=== PATIENT | female | born 1985 | race Two or more races ===

== ENCOUNTER 2020-07-05 18:01 | Inpatient (IN) | payer SELFPAY ==
[~2020-07-05] VITALS: Ht 152.4 cm; Wt 98.4 kg
[2020-07-05] MEDS ORDERED: ONDANSETRON HCL 4MG/2ML INJ IV STA (18:34)
[2020-07-05] MEDS ORDERED: MORPHINE SULFATE 4 MG/ML CPJ (NOT FOR IM USE) IV STA (18:34)
[2020-07-05] MEDS ORDERED: SODIUM CHLORIDE 0.9% 1,000 ML IV ONE (18:45)
[2020-07-05] MEDS ORDERED: ACETAMINOPHEN 325MG TABLET PO ONE (18:45)
[2020-07-05 19:13] LABS: CLARITY URINE CLEAR (CLEAR); COLOR URINE DARK YELLOW (YELLOW); KETONES URINE NEGATIVE (NEGATIVE); LEUKOCYTE ESTERASE URINE TRACE (NEGATIVE); NITRITE URINE NEGATIVE (NEGATIVE); OCCULT BLOOD URINE 3+ (NEGATIVE); PROTEIN URINE 1+ (NEGATIVE); SPECIFIC GRAVITY URINE 1.034 (1.005-1.030)
[2020-07-05 19:42] LABS: HEMATOCRIT. 31.1 % (36.0-48.0); HEMOGLOBIN. 10.5 g/dL (12.0-16.0); MEAN CORPUSCULAR HEMOGLOBIN 30.3 pg (28.0-32.0); MEAN CORPUSCULAR VOLUME 89.7 fL (81.0-99.0); MEAN PLATELET VOLUME 8.1 fl (7.4-10.4); PLATELET 416 x1000/uL (130-400); RED BLOOD CELL COUNT 3.47 mill/uL (4.2-5.4); RED CELL DISTRIBUTION WIDTH 14.1 % (11.6-14.6)
[2020-07-05 19:50] LABS: CHLORIDE 103 mEq/L (98-107)
[2020-07-05 19:51] LABS: HCG SCREEN NEGATIVE
[2020-07-05 20:13] LABS: PLATELET ESTIMATE INCREASED
[2020-07-05 23:09] LABS: HEPATITIS B SURFACE ANTIGEN NEGATIVE
[2020-07-05 23:39] LABS: HEPATITIS A AB IGM NEGATIVE (NEGATIVE)
[2020-07-06] MEDS ORDERED: IOHEXOL-300 100 ML BOTTLE ONE (01:01)
[2020-07-06] MEDS ORDERED: PIPERACILLIN/TAZOBACTAM 3.375GM/50ML PREMIX IV SCH (01:30)
[2020-07-06] MEDS ORDERED: MORPHINE SULFATE 4 MG/ML CPJ (NOT FOR IM USE) IV ONE (04:15)
[2020-07-06] MEDS ORDERED: CLONIDINE 0.1MG TABLET PO PRN (11:45)
[2020-07-06] MEDS ORDERED: DIPHENHYDRAMINE 50MG/ML VIAL IV PRN (11:45)
[2020-07-06] MEDS: SODIUM CHLORIDE 0.9% 1,000 ML IV SCH ×2 (11:45→23:20)
[2020-07-06] MEDS ORDERED: MORPHINE SULFATE 4 MG/ML CPJ (NOT FOR IM USE) IV PRN (11:45)
[2020-07-06] MEDS ORDERED: ONDANSETRON HCL 4MG/2ML INJ IV PRN (11:45)
[2020-07-06] MEDS ORDERED: PIPERACILLIN/TAZ 3.375G PREMIX 50 ML IV NR (11:45)
[2020-07-06] MEDS: ACETAMINOPHEN 325MG TABLET PO PRN (17:08)
[2020-07-06] MEDS: PIPERACILLIN/TAZOBACTAM 3.375 G in DEXT 5% WATER 100 ML IV SCH (18:00)
[2020-07-07] MEDS: PIPERACILLIN/TAZOBACTAM 3.375 G in DEXT 5% WATER 100 ML IV SCH ×4 (01:52→20:06)
[2020-07-07 04:46] LABS: BASOPHILS % 0.3 % (0.0-2.0); EOSINOPHILS % 0.1 % (0.0-5.0); HEMATOCRIT. 27.5 % (36.0-48.0); HEMOGLOBIN. 9.3 g/dL (12.0-16.0); LYMPHOCYTES % 9.6 % (20.0-50.0); MEAN CORPUSCULAR HEMOGLOBIN 30.3 pg (28.0-32.0); MEAN CORPUSCULAR VOLUME 89.5 fL (81.0-99.0); MEAN PLATELET VOLUME 7.9 fl (7.4-10.4); MONOCYTES % 9.5 % (2.0-8.0); NEUTROPHILS % 80.5 % (40.0-76.0); PLATELET 413 x1000/uL (130-400); RED BLOOD CELL COUNT 3.07 mill/uL (4.2-5.4)
[2020-07-07 04:53] LABS: CHLORIDE 103 mEq/L (98-107)
[2020-07-07 05:02] LABS: HDL CHOLESTEROL 31 mg/dL (40-59); LDL CHOLESTEROL 54 mg/dL (5-100)
[2020-07-07] MEDS: SODIUM CHLORIDE 0.9% 1,000 ML IV SCH ×2 (07:45→17:43)
[2020-07-07 09:00] VITALS: BP 133/86
[2020-07-07 12:00] VITALS: BP 101/51
[2020-07-07 16:00] VITALS: BP 124/76
[2020-07-07 20:00] VITALS: BP 121/76
[2020-07-07] MEDS: ACETAMINOPHEN 325MG TABLET PO PRN (21:36)
[2020-07-08] VITALS: BP 111/66
[2020-07-08] MEDS: PIPERACILLIN/TAZOBACTAM 3.375 G in DEXT 5% WATER 100 ML IV SCH ×3 (02:29→14:14)
[2020-07-08 04:00] VITALS: BP 116/77
[2020-07-08] MEDS: ACETAMINOPHEN 325MG TABLET PO PRN (04:26)
[2020-07-08 06:11] LABS: BASOPHILS % 0.2 % (0.0-2.0); EOSINOPHILS % 0.2 % (0.0-5.0); HEMATOCRIT. 27.9 % (36.0-48.0); HEMOGLOBIN. 9.1 g/dL (12.0-16.0); MEAN CORPUSCULAR HEMOGLOBIN 29.4 pg (28.0-32.0); MEAN CORPUSCULAR VOLUME 90.3 fL (81.0-99.0); MEAN PLATELET VOLUME 8.5 fl (7.4-10.4); MONOCYTES % 8.2 % (2.0-8.0); NEUTROPHILS % 83.4 % (40.0-76.0); PLATELET 434 x1000/uL (130-400); RED BLOOD CELL COUNT 3.08 mill/uL (4.2-5.4); RED CELL DISTRIBUTION WIDTH 14.3 % (11.6-14.6)
[2020-07-08 06:15] LABS: CHLORIDE 102 mEq/L (98-107)
[2020-07-08 08:00] VITALS: BP 118/69
[2020-07-08 12:00] VITALS: BP 116/76
[2020-07-08] MEDS ORDERED: OXYC-579 MT (13:07)
[2020-07-08] MEDS ORDERED: HYDR-4001 MT (13:07)
[2020-07-08] MEDS ORDERED: LEVO750T46 MT (13:07)
[2020-07-08] MEDS ORDERED: METR-167 MT (13:07)
[2020-07-08] MEDS: SODIUM CHLORIDE 0.9% 1,000 ML IV SCH (13:45)
[2020-07-08 14:31] VITALS: BP 116/78
[2020-07-08 16:00] VITALS: BP 115/78
== END 2020-07-08 17:20 | disposition home or self-care (01) | DRG 720 ==
LOC: ER 18:01 → 7EST 07-06 01:21 → EDBEDREQSVC 07-06 01:22 → EDBEDREQ 07-06 01:22 → EDBEDREQDT 07-06 01:22 → EDBEDREQTM 07-06 01:22 → ENRESERV 07-07 07:34
PROVIDERS: ADMIT Internal Medicine; ATTEND Internal Medicine
DX: A41.89 Other specified sepsis (principal); U07.1 COVID-19; K76.89 Other specified diseases of liver; K76.9 Liver disease, unspecified; E66.01 Morbid (severe) obesity due to excess calories; Z68.41 Body mass index [BMI] 40.0-44.9, adult
CPT/HCPCS: 36415; 71045; 76700; 80048; 80053; 80061; 81003; 81025; 84443; 84703; 85025; 86705; 86709; 86803; 87340; 87635; 93005; 96361; 96365; 96375; 96376; 99285; C9803; J2270; J2405; J2543; J7030; J7060; Q9967